=== PATIENT | male | born 1955 | race Caucasian/White ===

== ENCOUNTER → 2020-10-01 | Outpatient (CLI) | payer BC ==
[~2020-10-01] MED LIST: CRESTOR20 MG PO; FENOFIBRATE PO; MECLIZINE HCL12.5 MG PO; Z.0.ALLOPURINOL100 M PO; Z.0.ALTACE10 M1 PO; Z.0.DEXILANT60 MG PO; Z.0.NORVASC10 MG PO; Z.0.TOPROL XL100 MG PO; Z.1.HYDROCHLOROTH12. PO; Z.2.METFORMIN HCL500 PO
== END ==
LOC: US 07:55
PROVIDERS: ATTEND Internal Medicine Cardiovascular Disease
DX: R10.11 Right upper quadrant pain (principal)
CPT/HCPCS: 76700

== ENCOUNTER → 2020-11-26 | Outpatient (CLI) | payer BC ==
[~2020-11-26] MED LIST changes: +CRESTOR10 MG PO; +FARXIGA5 MG PO; +NEXIUM40 MG PO; +VALSARTAN-HCTZ1 EAC2 PO
== END ==
LOC: NM 10:03
PROVIDERS: ATTEND Internal Medicine Gastroenterology
DX: R10.11 Right upper quadrant pain (principal)
CPT/HCPCS: 78227; A9537

== ENCOUNTER → 2020-12-03 | Day surgery (SDC) | payer BC, MEDICARE ==
[2020-11-29 10:16] LABS: BASOPHILS % 0.3 % (0.0-1.0); EOSINOPHILS # (AUTO) 0.1 (0.0-0.4); EOSINOPHILS % 1.5 % (0.0-6.0); LYMPHOCYTES # (AUTO) 1.5 (1.0-3.2); LYMPHOCYTES % 20.5 % (18.0-39.1); MEAN CORPUSCULAR HEMOGLOBIN 30.2 pg (28-32); MEAN CORPUSCULAR HGB CONC 33.3 g/dL (31-35); MEAN CORPUSCULAR VOLUME 90.5 fL (81-99); MONOCYTES # (AUTO) 0.8 (0.2-0.8); MONOCYTES % 11.3 % (4.4-11.3); NEUTROPHILS # (AUTO) 4.7 (2.1-6.9); PLATELET COUNT 189 x10e3/uL (140-360); RED BLOOD COUNT 4.97 x10e6/uL (4.3-5.7); RED CELL DISTRIBUTION WIDTH 13.7 % (11.7-14.4)
[~2020-12-03] MED LIST changes: +GLUCAGON FOR INJ 1 MG VIAL ONE; +HYOSCYAMINE SULFATE 0.5 MG/ML INJ ONE; +LIDOCAINE HCL 2% LOCAL INJ 5 ML SDV VIAL INJ ONE; +METOCLOPRAMIDE HCL 10 MG/2ML VIAL ONE; +MIDAZOLAM HCL 2 MG/2 ML VIAL ONE; +PROPOFOL IV EMULSION 10 MG/ML 20 ML VIAL ONE
[2020-12-03 15:20] VITALS: BP 113/73
[2020-12-03 17:14] LABS: WBC,FECAL (FECAL LACTOFERRIN) NEGATIVE (NEGATIVE)
[2020-12-04 15:14] LABS: C DIFFICILE TOXIN A&B AMP PROB NEGATIVE (NEGATIVE)
== END | disposition home or self-care (01) ==
LOC: OR 12:10
PROVIDERS: ATTEND Internal Medicine Gastroenterology
DX: K52.9 Noninfective gastroenteritis and colitis, unspecified (principal); D12.4 Benign neoplasm of descending colon; K31.7 Polyp of stomach and duodenum; K29.70 Gastritis, unspecified, without bleeding; K20.90 Esophagitis, unspecified without bleeding; K44.9 Diaphragmatic hernia without obstruction or gangrene; K62.89 Other specified diseases of anus and rectum; K21.9 Gastro-esophageal reflux disease without esophagitis; K64.8 Other hemorrhoids; K76.0 Fatty (change of) liver, not elsewhere classified; E11.9 Type 2 diabetes mellitus without complications; I10 Essential (primary) hypertension; E78.5 Hyperlipidemia, unspecified; Z01.812 Encounter for preprocedural laboratory examination; Z20.822 Contact with and (suspected) exposure to COVID-19; Z79.84 Long term (current) use of oral hypoglycemic drugs; Z68.29 Body mass index [BMI] 29.0-29.9, adult; Z86.19 Personal history of other infectious and parasitic diseases; Z80.0 Family history of malignant neoplasm of digestive organs
CPT/HCPCS: 36415 ×2; 43239; 45380; 45385; 82948; 83630; 83993; 85025; 87045; 87177; 87328; 87493; J1610; J1980; J2001; J2250; J2704; J2765; U0002; 45378

== ENCOUNTER → 2020-12-19 | Outpatient (CLI) | payer BC, MEDICARE ==
[~2020-12-19] MED LIST changes: -GLUCAGON FOR INJ 1 MG VIAL ONE; -HYOSCYAMINE SULFATE 0.5 MG/ML INJ ONE; -LIDOCAINE HCL 2% LOCAL INJ 5 ML SDV VIAL INJ ONE; -METOCLOPRAMIDE HCL 10 MG/2ML VIAL ONE; -MIDAZOLAM HCL 2 MG/2 ML VIAL ONE; -PROPOFOL IV EMULSION 10 MG/ML 20 ML VIAL ONE
== END ==
LOC: DX 08:33
PROVIDERS: ATTEND Internal Medicine Gastroenterology
DX: K92.1 Melena (principal)
CPT/HCPCS: 74250

== ENCOUNTER → 2021-02-15 | Outpatient (CLI) | payer BC, MEDICARE | LOC: MRI 07:34 | PROVIDERS: ATTEND Internal Medicine Nephrology | DX: S39.012D Strain of muscle, fascia and tendon of lower back, subsequent encounter (principal); M51.36 Other intervertebral disc degeneration, lumbar region; M51.26 Other intervertebral disc displacement, lumbar region; Z98.890 Other specified postprocedural states | CPT/HCPCS: 72148 ==

== ENCOUNTER → 2021-03-14 | Day surgery (SDC) | payer BC, MEDICARE ==
[2021-03-12 10:33] LABS: BASOPHILS % 0.3 % (0.0-1.0); EOSINOPHILS # (AUTO) 0.1 (0.0-0.4); EOSINOPHILS % 1.7 % (0.0-6.0); HEMATOCRIT 44.6 % (38.2-49.6); HEMOGLOBIN 14.8 g/dL (14.0-18.0); LYMPHOCYTES # (AUTO) 1.3 (1.0-3.2); LYMPHOCYTES % 22.1 % (18.0-39.1); MEAN CORPUSCULAR HEMOGLOBIN 30.8 pg (28-32); MEAN CORPUSCULAR HGB CONC 33.2 g/dL (31-35); MEAN CORPUSCULAR VOLUME 92.9 fL (81-99); MONOCYTES # (AUTO) 0.6 (0.2-0.8); MONOCYTES % 9.7 % (4.4-11.3); NEUTROPHILS # (AUTO) 3.9 (2.1-6.9); NEUTROPHILS % 65.9 % (38.7-80.0); PLATELET COUNT 201 x10e3/uL (140-360); RED CELL DISTRIBUTION WIDTH 13.8 % (11.7-14.4)
[2021-03-12 10:48] LABS: INR 0.87
[2021-03-12 10:49] LABS: PARTIAL THROMBOPLASTIN TIME 27.7 seconds (23.8-35.5)
[2021-03-12 10:59] LABS: CALCIUM 9.2 mg/dL (8.4-10.2); CREATININE, SERUM 1.12 mg/dL (0.72-1.25)
[~2021-03-14] MED LIST changes: +ACETAMINOPHEN 325 MG TAB PO PRN; +AMLODIPINE BESY10 MG PO; +ANTI-DIARRHEAL2 MG PO; +CARISOPRODOL 350 MG TAB PO PRN; +Cefazolin 1 GM in SODIUM CHLORIDE 0.9% 50ML 50 ML IV SCH; +HYDROCODON-ACE1 EA12 PO; +HYDROMORPHONE 2MG/ML 2 MG/ML ML IV PRN; +LACTATED RINGER'S 1,000 ML IV SCH; +LIDOCAINE 1% W/EPINEPHRINE 20 ML VIAL ONE; +MAGNESIUM/ALUMINUM/SIMETHICONE 30 ML UDC PO PRN; +MELOXICAM PO; +METOCLOPRAMIDE HCL 10 MG/2ML VIAL ONE; +MORPHINE SULFATE 5 MG/ML VIAL IM PRN; +MORPHINE SULFATE INJ 4 MG/ML INJ 1ML IM PRN; +ONDANSETRON HCL INJ 2MG/ML 2ML 2 MG/ML VIAL IV PRN; +OXYCODONE/ACETAMINOPHEN 5-325 1 EACH TABLET PO PRN; +PROMETHAZINE HCL (IM) 25 MG/ML VIAL IM PRN; +THROMBIN FOR SOLN 5,000 UNIT VIAL ONE; +Vancomycin IV 1 GM VIAL ONE; +ZOLPIDEM TARTRATE 5 MG TAB PO PRN
[2021-03-14 12:15] VITALS: BP 120/75
== END | disposition home or self-care (01) ==
LOC: OR 05:22
PROVIDERS: ATTEND Neurological Surgery
DX: M51.16 Intervertebral disc disorders with radiculopathy, lumbar region (principal); M25.78 Osteophyte, vertebrae; E11.9 Type 2 diabetes mellitus without complications; I10 Essential (primary) hypertension; E78.5 Hyperlipidemia, unspecified; Z01.810 Encounter for preprocedural cardiovascular examination; Z01.812 Encounter for preprocedural laboratory examination; Z01.818 Encounter for other preprocedural examination; Z20.822 Contact with and (suspected) exposure to COVID-19; Z79.84 Long term (current) use of oral hypoglycemic drugs; Z68.30 Body mass index [BMI] 30.0-30.9, adult; Z86.19 Personal history of other infectious and parasitic diseases
CPT/HCPCS: 36415 ×2; 63056; 71046; 72020; 80048; 82948; 85025; 85610; 85730; 86850 ×2; 86900 ×2; 93005; J0690; J2405; J2765; J3370; U0002

== ENCOUNTER → 2021-04-11 | Outpatient (RCR) | payer BC, MEDICARE ==
[~2021-04-11] MED LIST changes: -ACETAMINOPHEN 325 MG TAB PO PRN; -CARISOPRODOL 350 MG TAB PO PRN; -Cefazolin 1 GM in SODIUM CHLORIDE 0.9% 50ML 50 ML IV SCH; -HYDROMORPHONE 2MG/ML 2 MG/ML ML IV PRN; -LACTATED RINGER'S 1,000 ML IV SCH; -LIDOCAINE 1% W/EPINEPHRINE 20 ML VIAL ONE; -MAGNESIUM/ALUMINUM/SIMETHICONE 30 ML UDC PO PRN; -METOCLOPRAMIDE HCL 10 MG/2ML VIAL ONE; -MORPHINE SULFATE 5 MG/ML VIAL IM PRN; -MORPHINE SULFATE INJ 4 MG/ML INJ 1ML IM PRN; -ONDANSETRON HCL INJ 2MG/ML 2ML 2 MG/ML VIAL IV PRN; -OXYCODONE/ACETAMINOPHEN 5-325 1 EACH TABLET PO PRN; -PROMETHAZINE HCL (IM) 25 MG/ML VIAL IM PRN; -THROMBIN FOR SOLN 5,000 UNIT VIAL ONE; -Vancomycin IV 1 GM VIAL ONE; -ZOLPIDEM TARTRATE 5 MG TAB PO PRN
== END ==
LOC: PT 04-02 15:55
PROVIDERS: ATTEND Neurological Surgery
DX: M51.16 Intervertebral disc disorders with radiculopathy, lumbar region (principal); M53.86 Other specified dorsopathies, lumbar region; M62.81 Muscle weakness (generalized)

== ENCOUNTER 2021-04-25 07:00 | Outpatient (RCR) | payer BC, MEDICARE | END 2021-05-12 | LOC: PT 07:00 | PROVIDERS: ATTEND Neurological Surgery | DX: M51.16 Intervertebral disc disorders with radiculopathy, lumbar region (principal); M62.81 Muscle weakness (generalized); M53.86 Other specified dorsopathies, lumbar region | CPT/HCPCS: 97139 ==

== ENCOUNTER → 2021-07-30 | Outpatient (CLI) | payer MEDICARE | LOC: MRI 07:26 | PROVIDERS: ATTEND Family Medicine | DX: R42 Dizziness and giddiness (principal) | CPT/HCPCS: 70551 ==

== ENCOUNTER 2022-06-16 17:07 | Emergency (ER) | payer BC, MEDICARE ==
[~2022-06-16] VITALS: Ht 177.8 cm; Wt 95.3 kg
[2022-06-16] MEDS ORDERED: INDOMETHACIN 25 MG CAP PO SCH (18:30)
[2022-06-16 18:42] LABS: BASOPHILS % 0.2 % (0.0-1.0); EOSINOPHILS % 0.1 % (0.0-6.0); HEMATOCRIT 42.9 % (38.2-49.6); HEMOGLOBIN 13.9 g/dL (14.0-18.0); LYMPHOCYTES # (AUTO) 1.3 (1.0-3.2); LYMPHOCYTES % 11.2 % (18.0-39.1); MEAN CORPUSCULAR HEMOGLOBIN 30.5 pg (28-32); MEAN CORPUSCULAR HGB CONC 32.4 g/dL (31-35); MEAN CORPUSCULAR VOLUME 94.3 fL (81-99); MONOCYTES # (AUTO) 1.3 (0.2-0.8); MONOCYTES % 11.9 % (4.4-11.3); NEUTROPHILS # (AUTO) 8.5 (2.1-6.9); NEUTROPHILS % 76.1 % (38.7-80.0); PLATELET COUNT 239 x10e3/uL (140-360); RED BLOOD COUNT 4.55 x10e6/uL (4.3-5.7); RED CELL DISTRIBUTION WIDTH 13.1 % (11.7-14.4)
[2022-06-16 19:06] LABS: ALBUMIN 3.9 g/dL (3.5-5.0); ALBUMIN/GLOBULIN RATIO 0.9 (0.8-2.0); ANION GAP 18.5 mmol/L (8-16); CALCIUM 9.5 mg/dL (8.4-10.2); CREATININE, SERUM 1.11 mg/dL (0.72-1.25); POTASSIUM 3.5 mmol/L (3.5-5.1)
[2022-06-16 19:12] LABS: CREATINE KINASE MB 0.7 ng/mL (0-5.0)
[2022-06-16] MEDS ORDERED: KETOROLAC TROMETHAMINE 30 MG/ML VIAL IV STA (20:44)
[2022-06-16] MEDS ORDERED: INDOMETHACIN50 MG PO (21:03)
[2022-06-16] MEDS ORDERED: ONDANSETRON ODT4 MG PO (21:03)
[2022-06-16] MEDS ORDERED: PANTOPRAZOLE SO40 MG PO (21:03)
== END 2022-06-16 21:17 | disposition home or self-care (01) ==
LOC: ER 18:08
DX: R06.02 Shortness of breath (principal); N28.9 Disorder of kidney and ureter, unspecified; M10.9 Gout, unspecified; K29.70 Gastritis, unspecified, without bleeding; R10.13 Epigastric pain; E11.65 Type 2 diabetes mellitus with hyperglycemia; I10 Essential (primary) hypertension; E78.5 Hyperlipidemia, unspecified; K21.9 Gastro-esophageal reflux disease without esophagitis; M54.9 Dorsalgia, unspecified; G89.29 Other chronic pain
CPT/HCPCS: 36415; 71045; 80053; 82550; 82553; 83690; 84484; 85025; 93005; 99284; C9113; J1885

== ENCOUNTER → 2024-05-31 | Outpatient (REF) | payer MEDICARE ==
[~2024-05-31] MED LIST changes: +INDOMETHACIN50 MG PO; +ONDANSETRON ODT4 MG PO; +PANTOPRAZOLE SO40 MG PO
== END ==
LOC: MRI 07:35
PROVIDERS: ATTEND Family Medicine
DX: M47.816 Spondylosis without myelopathy or radiculopathy, lumbar region (principal); M54.31 Sciatica, right side; R29.2 Abnormal reflex; M51.35 Other intervertebral disc degeneration, thoracolumbar region
CPT/HCPCS: 72148

== ENCOUNTER 2024-06-23 07:09 | Observation (INO) | payer BC, MEDICARE ==
[2024-06-22 10:51] LABS: BASOPHILS % 0.3 % (0.0-1.0); EOSINOPHILS # (AUTO) 0.2 (0.0-0.4); EOSINOPHILS % 2.5 % (0.0-6.0); HEMATOCRIT 46.4 % (38.2-49.6); HEMOGLOBIN 14.9 g/dL (14.0-18.0); LYMPHOCYTES # (AUTO) 1.7 (1.0-3.2); MEAN CORPUSCULAR HEMOGLOBIN 31.1 pg (28-32); MEAN CORPUSCULAR HGB CONC 32.1 g/dL (31-35); MEAN CORPUSCULAR VOLUME 96.9 fL (81-99); MONOCYTES # (AUTO) 0.7 (0.2-0.8); MONOCYTES % 11.5 % (4.4-11.3); NEUTROPHILS # (AUTO) 3.7 (2.1-6.9); NEUTROPHILS % 58.5 % (38.7-80.0); PLATELET COUNT 224 x10e3/uL (140-360); RED BLOOD COUNT 4.79 x10e6/uL (4.3-5.7); RED CELL DISTRIBUTION WIDTH 13.5 % (11.7-14.4); WHITE BLOOD COUNT 6.34 x10e3/uL (4.8-10.8)
[2024-06-22 11:18] LABS: ANION GAP 14.6 mmol/L (8-16); CREATININE, SERUM 1.06 mg/dL (0.72-1.25); POTASSIUM 3.6 mmol/L (3.5-5.1)
[2024-06-22 11:34] LABS: INR 0.95; PROTHROMBIN TIME 13.3 seconds (11.9-14.5)
[2024-06-22 11:35] LABS: PARTIAL THROMBOPLASTIN TIME 29.2 seconds (23.8-35.5)
[~2024-06-23] VITALS: Ht 177.8 cm; Wt 89.4 kg
[~2024-06-23 07:09] MED LIST changes: +ALLOPURINOL300 MG PO; +DOXYCYCLINE HY100 MG PO; +FENOFIBRATE145 MG PO; +GLIPIZIDE ER5 MG PO
[2024-06-23] MEDS: CEFAZOLIN SODIUM 2 GM ONE (08:13)
[2024-06-23] MEDS: LACTATED RINGER'S 1,000 ML ONE (08:13)
[2024-06-23] MEDS ORDERED: ONDANSETRON HCL INJ 2MG/ML 2ML 2 MG/ML VIAL IV PRN (11:45)
[2024-06-23] MEDS ORDERED: MAGNESIUM/ALUMINUM/SIMETHICONE 30 ML UDC PO PRN (11:45)
[2024-06-23] MEDS ORDERED: PROMETHAZINE HCL (IM) 25 MG/ML VIAL IM PRN (11:45)
[2024-06-23] MEDS ORDERED: Morphine 2mg Syringe 2 MG/ML SYR IV PRN (11:45)
[2024-06-23] MEDS ORDERED: ACETAMINOPHEN 325 MG TAB PO PRN (11:45)
[2024-06-23] MEDS ORDERED: CEPACOL SORE THROAT LOZENGES PO PRN (11:45)
[2024-06-23] MEDS ORDERED: ZOLPIDEM TARTRATE 5 MG TAB PO PRN (11:45)
[2024-06-23] MEDS: FENTANYL CITRATE/PF 100MCG/2 ML INJ ONE (12:01)
[2024-06-23] MEDS: CARISOPRODOL 350 MG TAB PO PRN (12:13)
[2024-06-23] MEDS: OXYCODONE/ACETAMINOPHEN 5-325 1 EACH TABLET PO PRN (12:13)
[2024-06-23 13:40] VITALS: BP 136/79; PULSE 62; RESP 18; TEMP 97.4; O2SAT 99
[2024-06-23] MEDS: LACTATED RINGER'S 1,000 ML IV SCH (14:35)
[2024-06-23 15:09] VITALS: BP 136/79; PULSE 62; RESP 18; TEMP 97.4; O2SAT 97
[2024-06-23] MEDS ORDERED: DOXYCYCLINE HYCLATE TABLET 100 MG TAB PO SCH (17:00)
[2024-06-23] MEDS: METFORMIN HCL 500 MG TAB PO SCH (17:08)
[2024-06-23 20:00] VITALS: BP 133/86; PULSE 79; RESP 18; TEMP 97.5; O2SAT 92
[2024-06-23 21:00] VITALS: BP 133/86; PULSE 79; RESP 18; TEMP 97.5; O2SAT 92
[2024-06-24] MEDS: CARISOPRODOL 350 MG TAB ONE (00:59)
[2024-06-24] MEDS: OXYCODONE/ACETAMINOPHEN 5-325 1 EACH TABLET ONE (00:59)
[2024-06-24 04:31] VITALS: BP 105/88; PULSE 88; RESP 18; TEMP 97.4; O2SAT 98
[2024-06-24] MEDS: PANTOPRAZOLE SOD 40 MG TABEC PO SCH (07:30)
[2024-06-24 08:00] VITALS: BP 131/79; PULSE 85; RESP 18; TEMP 98.2; O2SAT 99
[2024-06-24] MEDS: GLIPIZIDE 5 MG TAB ER PO SCH (08:00)
[2024-06-24] MEDS ORDERED: ONDANSETRON HCL 4 MG ORAL DISINTEGRATING TAB PO PRN (08:15)
[2024-06-24] MEDS ORDERED: SIMVASTATIN 40 MG TAB PO SCH (09:00)
[2024-06-24] MEDS: AMLODIPINE BESYLATE 10 MG TAB PO SCH (09:00)
[2024-06-24] MEDS: METOPROLOL SUCCINATE 50 MG TAB XL PO SCH (09:00)
[2024-06-24] MEDS: ALLOPURINOL 300 MG TAB PO SCH (09:00)
[2024-06-24] MEDS: CRESTOR 10MG PO SCH (09:00)
[2024-06-24] MEDS: FENOFIBRATE 54 MG PO SCH (09:00)
[2024-06-24] MEDS: VALSARTAN 160 MG TAB PO SCH (09:00)
[2024-06-24 09:23] VITALS: BP 131/79; PULSE 85; RESP 18; TEMP 98.2; O2SAT 99
== END 2024-06-24 11:30 | disposition home or self-care (01) ==
LOC: OR 07:09 → PACU V 11:42 → MED/SURG 13:25
PROVIDERS: ADMIT Neurological Surgery; ATTEND Neurological Surgery
DX: M51.16 Intervertebral disc disorders with radiculopathy, lumbar region (principal); I10 Essential (primary) hypertension; E78.5 Hyperlipidemia, unspecified; E11.9 Type 2 diabetes mellitus without complications; Z79.84 Long term (current) use of oral hypoglycemic drugs; Z79.899 Other long term (current) drug therapy; Z01.810 Encounter for preprocedural cardiovascular examination; Z01.812 Encounter for preprocedural laboratory examination; Z01.818 Encounter for other preprocedural examination; K75.9 Inflammatory liver disease, unspecified
CPT/HCPCS: 36415 ×3; 63030; 71046; 72020; 80048; 82948 ×2; 85025; 85610; 85730; 86850; 86900; 88304; 88311; 93005; G0378 ×2; J0690 ×2; J3010; J7121

== ENCOUNTER → 2024-11-21 | Outpatient (REF) | payer MEDICARE | LOC: RAD 09:34 | PROVIDERS: ATTEND Family Medicine | DX: R51.9 Headache, unspecified (principal); M54.2 Cervicalgia; M53.82 Other specified dorsopathies, cervical region | CPT/HCPCS: 72040 ==